=== PATIENT | female | born 1995 ===

== ENCOUNTER 2018-04-16 13:36 | Inpatient (IN) | payer MEDICAID, SELFPAY ==
[2018-04-16] MEDS ORDERED: Lactated Ringer's 1,000 ML IV ONE (14:47)
[2018-04-16 15:22] LABS: BASO % 0.4 % (0.0-2.0); EOS % 0.3 % (0.0-4.0); HEMOGLOBIN 10.8 g/dL (12.0-16.0); LYMPH # 1.5 K/uL (1.0-4.3); MEAN CELL VOLUME 80.2 fl (81.0-99.0); MEAN CORPUSCULAR HEMOGLOBIN 26.4 pg (27.0-31.0); MEAN CORPUSCULAR HGB CONC 32.9 g/dL (33.0-37.0); MEAN PLATELET VOLUME 9.6 fl (7.2-11.7); MONO # 0.5 K/uL (0.0-0.8); MONO % 5.9 % (0.0-10.0); NEUT # 6.2 K/uL (1.8-7.0); NEUT % 75.4 % (50.0-75.0); RBC 4.09 Mil/uL (3.80-5.20); WHITE BLOOD COUNT 8.2 K/uL (4.8-10.8)
[2018-04-16] MEDS: Lactated Ringer's 1,000 ML IV SCH ×2 (16:30→23:45)
[2018-04-16] MEDS ORDERED: Oxytocin 30 UNIT 30 UNITS/500 ML BAG IV ONE (23:42)
--- NOTE | 2018-04-16 23:56 | OBADHP ---
Datetime: 04/16/2018 23:54 FHR - Baseline A Provider: 130s-140s Contraction Comments Provider: occas Vital Signs Provider: Reviewed; Within Normal Limits NICHD Variability Prov Fetus A: Moderate 6-25bpm NICHD Accel Fetus A IP Provider: 15X15 FHR Category Provider Fetus A: Category I NICHD Decel Fetus A IP Provider: None Dilatation, Provider: 2-3 Effacement, Provider: 80 Station, Provider: -2 Datetime: 04/16/2018 15:03 Admit Comment, IP Provider: 22 y/o , 37.6 wks with SAIGE of 05/01/18 based on US presents to [facility] D with SROM. Reports leaking of clear liquid at 7 am today. Denies VB. CTx irregular for last 2 days. Endorses good FM. Denies urinary symptoms, N/V/D/C/F/C. Headache or CP. course: Lapse in care. Last US January 2018. PMHx; Denies PSHx: Denies Allergies: Seafood swelling of mouth F/H: Grandfather HTN Social H/O: Used to drink ETOH before Deneis alcohol/smoking/drugs since OBHx: 2 SABs at 6 and 8 weeks Physical exam Gen: NAD Chest: RRR, S1S2 present Lungs: CTAB ABdomen: Gravid, soft NT SSE: + pooling, + nitrazine, grossly ruptured. SVE: 2 cm/80%/-2 Ext: No pedal edema, No calf tenderness Assessment and Plan: 22 y/o , 37.6 wks with SAIGE of 05/01/18 admitted for SROM. EFM and toco monitoring SSE: grossly ruptured, + pooling and +nitrazine GBS unknown, HIV Neg, RPR neg, HBSAG neg, Rubella immune Admit to unit LR @ 999 and 125 anesthesia consult Monitor for cervical changes Rene Cui, PGY1 Pelvic Type - PN: Not Done Extremities - PN: Normal Abdomen - PN: Normal Back - PN: Not Done Breast - PN: Not Done Lungs - PN: Normal Heart - PN: Normal Thyroid - PN: Not Done Neurologic - PN: Normal HEENT - PN: Normal General - PN: Normal Amniotic Fluid Color, Provider: Clear Membranes, Provider: Ruptured Comments, ACOG Physical Exam: Gen: NAD Chest: RRR, S1S2 present Lungs: CTAB ABdomen: Gravid, soft NT SSE: + pooling, + nitrazine, grossly ruptured. SVE: 2 cm/80%/-2 Ext: No pedal edema, No calf tenderness Pool Provider: Positive Nitrazine Provider: Positive IP Hx Assessment: The History has been Reviewed and is Current IP Chief Complaint: Suspected ruptured membranes Genitourinary Exam: Normal DTRs - PN: Not Done EGA AdmitDate IP: 37.6 IP Adm Impression: Term, intrauterine IP Admit Plan: Admit to unit; Initiate labor protocol
--- NOTE | 2018-04-16 23:58 | OBPN ---
Datetime: 04/16/2018 23:54 IP Progress Impression: Rupture of membranes IP Procedures: Sterile Vag Exam IP Progress Plan: Augmentation Contraction Comments Provider: occas FHR - Baseline A Provider: 130s-140s IP Progress Note Comment: Pt without complaints. Plan to start pitocin augmentation due to SROM and no progress/labor FHT category I Discussed plan with patient and all patient questions answered. Vital Signs Provider: Reviewed; Within Normal Limits NICHD Accel Fetus A IP Provider: 15X15 FHR Category Provider Fetus A: Category I NICHD Variability Prov Fetus A: Moderate 6-25bpm Dilatation, Provider: 2-3 Effacement, Provider: 80 Station, Provider: -2 NICHD Decel Fetus A IP Provider: None Datetime: 04/16/2018 15:03 Pool Provider: Positive Nitrazine Provider: Positive Membranes, Provider: Ruptured Amniotic Fluid Color, Provider: Clear
[2018-04-17] MEDS: Lactated Ringer's 1,000 ML IV SCH ×2 (03:29→13:03)
[2018-04-17] MEDS ORDERED: ceFAZolin IV 2 gm in Dextrose 2 GM/50 ML BAG IVPB ONE (07:45)
[2018-04-17] MEDS ORDERED: Oxytocin 30 UNIT 30 UNITS/500 ML BAG IV ONE (07:47)
[2018-04-17] MEDS ORDERED: Succinylcholine Chloride 20 mg/ml Syr (5 ml) IV ONE (07:49)
[2018-04-17] MEDS ORDERED: OXYTOCIN/0.9 % NS 20 UNIT/1,000 ML BAG IV SCH (08:00)
[2018-04-17] MEDS ORDERED: Propofol 10 mg/ml Inj (20 ML) ONE (08:09)
[2018-04-17] MEDS ORDERED: Dexamethasone 4 mg/1 ml ONE (08:13)
[2018-04-17] MEDS ORDERED: ceFAZolin IV 2 gm in Dextrose 2 GM/50 ML BAG IVPB SCH (09:00)
[2018-04-17] MEDS ORDERED: Multivitamin With Minerals Tab PO SCH (09:00)
[2018-04-17] MEDS ORDERED: Naloxone 0.4 mg/ml Inj (Adult) IVP PRN ×2 (09:14→13:42)
[2018-04-17] MEDS ORDERED: DiphenhydrAMINE 50 mg/ml Inj IVP PRN ×2 (09:14→13:42)
--- NOTE | 2018-04-17 09:14 | OBADHP ---
Datetime: 04/16/2018 15:03 EGA AdmitDate IP: 37.6 Datetime: 04/16/2018 14:20 IP Admit Plan: Admit to unit; Initiate labor induction protocol; Observation/Evaluation
[2018-04-17] MEDS ORDERED: Oxycodone/Acetaminophen 5/325 mg Tab PO PRN (09:16)
--- NOTE | 2018-04-17 09:21 | OBPN ---
Datetime: 04/17/2018 09:13 IP Progress Note Comment: Pt with prolonged FHT deceleration. After repositioning, 02, scalp stim t here was temporarily recovery. ISE place. FHT showed bradycardia with moments of sluggish recovery. Decision for stat C/S due to prolonged FHT decelerations. I discussed the R/B/A of surgery with edinson yan and all patient questions answered. Pt agrees with plan. Anesthesia in route.
--- NOTE | 2018-04-17 09:36 | RAD ---
Date of service: 04/17/2018 HISTORY: no inital instrument count prior to surgery COMPARISON: Abdomen radiograph 04/17/2018. FINDINGS: BOWEL: Paucity of gas is seen at the rectum with gas distending likely large-bowel loops at the upper abdomen retained fecal material is again seen the right christine abdomen. Overall pattern may reflect developing ileus. Bowel obstruction not clearly identified. Continued clinical and radiographic monitor advised. Post pelvic surgeries surgical clips are noted overlying the pelvis. No large free intra peritoneal gas collection identified. BONES: Normal. OTHER FINDINGS: None. IMPRESSION: Likely developing postoperative ileus. Bowel obstruction not favored. Clinically correlate.
--- NOTE | 2018-04-17 10:36 | OBDS ---
DELIVERY PERSONNEL Delivery Doctor: Cora Alexander MD Anesthesiologist: olivia Beaver MD MATERNAL INFORMATION Medications in Delivery: pitocin 30 units Provider Comments: 1' LFT C/S Pt delivered viable with apgars 9/9. C/S completed with general anesthesia. Normal uterus , normal tubes and ovaries bilaterally. pt tolerated procedure well. EBL 800cc IVF 1500cc LR UO 20cc No complications. Refer to dictation. LABOR SUMMARY EDC: 05/01/2018 00:00 No. Babies in Womb: 1 Attempted: No LABOR INFORMATION Reason for Induction: Not Applicable Oxytocin: Augmentation Group B Beta Strep: Not Done (Annotations: aware.No ABT ordered) Steroids Given: None Reason Steroids Not Administered: Not Applicable MEMBRANES Membranes Rupture Method: Spontaneous Rupture of Membranes: 04/16/2018 07:00 Length of Rupture (hrs): 24.92 Amniotic Fluid Color: Clear Amniotic Fluid Amount: Scant Amniotic Fluid Odor: Normal STAGES OF LABOR Stage 3 hrs: 0 Stage 3 min: 1 CSECTION DELIVERY Primary Indication: Other Other Primary Indication: prolonged and persistent FHT decelerations BABY A INFORMATION Delivery Date/Time: 04/17/2018 07:55 Method of Delivery: Born in Route : Yes : N/A (Annotations: Data stored by [facility] on behalf of user) Forceps: N/A Vacuum Extraction: N/A Shoulder Dystocia : No SHOULDER DYSTOCIA BABY A Delivery Date/Time: 04/17/2018 07:55 PRESENTATION/POSITION BABY A Presentation: Cephalic Cephalic Presentation: Vertex PLACENTA INFORMATION BABY A Placenta Delivery Time : 04/17/2018 07:56 Placenta Method of Delivery: Manual Removal Placenta Status: Delivered SCORES BABY A Heart Rate 1 min: >100 bpm Resp Effort 1 min: Good Cry Reflex Irritability 1 min: Cough or Sneeze or Pulls Away Muscle Tone 1 min: Active Motion Color 1 min: Body [place], Extremities Blue SCORE 1 MIN: 9 Heart Rate 5 min: >100 bpm Resp Effort 5 min: Good Cry Reflex Irritability 5 min: Cough or Sneeze or Pulls Away Muscle Tone 5 min: Active Motion Color 5 min: Body [place], Extremities Blue SCORE 5 MIN: 9 Heart Rate 10 min: >100 bpm Resp Effort 10 min: Good Cry Reflex Irritability 10 min: Cough or Sneeze or Pulls Away Muscle Tone 10 min: Active Motion Color 10 min: Completely [place] SCORE 10 MIN: 10 INFORMATION BABY A Gestational Age at Delivery: 38.0 Outcome : Liveborn Condition : Stable Infant Sex: Female IDENTIFICATION/MEDS BABY A ID Band Number: [id number] ID Band Location: Left Leg; Left Arm Sensor Location : Left Leg WEIGHT/LENGTH BABY A Infant Birthweight (gms): 3380 Weight (lb): 7 Infant Weight (oz): 7 CORD INFORMATION BABY A No. Cord Vessels: 3 Nuchal Cord : N/A Suction: Mouth; Nose
[2018-04-17] MEDS ORDERED: Lactated Ringer's 1,000 ML IV SCH (13:42)
--- NOTE | 2018-04-17 20:55 | OP ---
PROCEDURE DATE: 04/17/2018 PREOPERATIVE DIAGNOSIS: Persistent heart tracing decelerations. POSTOPERATIVE DIAGNOSIS: Persistent heart tracing decelerations. OPERATION PERFORMED: Primary low-flap transverse section via Pfannenstiel incision. ANESTHESIA: General. ANESTHESIOLOGISTS: Joie Retana MD and Oracio Beaver MD COMPLICATIONS: None. ESTIMATED BLOOD LOSS: 800 mL. FLUIDS: 1500 mL of lactated Ringer's. URINE OUTPUT: 20 mL of clear urine. SURGEON: Kurt Alexander MD OPERATIVE FINDINGS: Viable infant with Apgars of 9 and 9 at 1 and 5 minutes respectively. Normal uterus, normal tubes, and normal ovaries bilaterally. DESCRIPTION OF PROCEDURE: The patient was taken to the operating room where general anesthesia was found to be adequate. The patient was prepped and draped in normal sterile fashion in dorsal supine position with leftward tilt. A Pfannenstiel skin incision was made with the scalpel. This was carried down through to the underlying layer of fascia with a scalpel. Midline defect was made in the fascial layer with the scalpel. The fascial incision was then extended bilaterally with curved Borges scissors. The fascial layer was from the underlying rectus muscles both bluntly and sharply with curved Borges scissors. The rectus muscles were at the midline. The peritoneum was then identified and entered bluntly. The peritoneal incision was extended bluntly. Sanjiv retractors placed into the abdomen. The uterus was incised with the scalpel. The uterine incision was extended bilaterally bluntly. The 's head was delivered atraumatically. Nose and mouth were suctioned with bulb suction. The remainder of the infant was delivered without complication. The cord was clamped and cut. The was handed off to awaiting pediatricians. Cord gases were collected. Cord blood was collected. The placenta was removed manually. The uterine incision was repaired with 0 Vicryl in a running, locked fashion. A second layer with the same suture was used to imbricate the first and to obtain excellent hemostasis. Re-inspection of the uterine incision proved excellent hemostasis. The abdomen and pelvis were irrigated with copious amounts of warm normal saline. Re-inspection of the uterine incision proved hemostasis. All instruments were removed from the patient. The peritoneal layer was closed with a running stitch of 2-0 chromic. The rectus muscles were reapproximated in the midline with a running stitch of 2-0 chromic. The fascial layer was closed with a running stitch of 0 Vicryl. Subcutaneous tissue was closed with a running stitch of 3-0 plain. The skin was closed with rc. The patient tolerated the procedure well. All sponge, lap, and needle counts were correct x2. There were no complications. The patient was given 2 g of Ancef just prior to the beginning of the procedure. The patient was taken to the recovery room in awake and stable condition. Kurt Alexander MD
[2018-04-18 06:12] LABS: HEMOGLOBIN 8.5 g/dL (12.0-16.0); MEAN CELL VOLUME 82.1 fl (81.0-99.0); MEAN CORPUSCULAR HEMOGLOBIN 26.4 pg (27.0-31.0); MEAN CORPUSCULAR HGB CONC 32.1 g/dL (33.0-37.0); RBC 3.23 Mil/uL (3.80-5.20); RED CELL DISTRIBUTION WIDTH 14.2 % (11.5-14.5)
--- NOTE | 2018-04-18 06:58 | OBPPN ---
Datetime: 04/18/2018 06:53 PP Pain Prov: Within normal limits PP Nausea Prov: Denies PP Flatus Prov: Yes PP BM Prov: No PP Abdomen/Uterus Prov: Normal PP Lochia Prov: Normal PP Extremities Prov: Normal PP C/S Incision Prov: Normal PP Progress Prov: Normal PP Comments Phys Exam Prov: Incision w/ bandage in place PP Impression Prov: Normal progression PP Progress Note Prov: POD 1 s/p primary c/s, doing well, breast feeding Continue current care Vital Signs Provider PP: Reviewed
[2018-04-18] MEDS: Multivitamin With Minerals Tab PO SCH (08:08)
[2018-04-18] MEDS: Oxycodone/Acetaminophen 5/325 mg Tab PO PRN ×2 (15:04→22:43)
[2018-04-19] MEDS: Multivitamin With Minerals Tab PO SCH (09:03)
[2018-04-19] MEDS: Oxycodone/Acetaminophen 5/325 mg Tab PO PRN (09:06)
--- NOTE | 2018-04-19 10:05 | OBPPN ---
Datetime: 04/19/2018 07:06 PP Pain Prov: Within normal limits PP Nausea Prov: Denies PP Flatus Prov: Yes PP BM Prov: No PP Breasts Prov: Not Done PP Heart Prov: Normal PP Lungs Prov: Normal PP Abdomen/Uterus Prov: Normal PP Lochia Prov: Normal PP Vulva/Perineum Prov: Normal PP CVA Tenderness Prov: Normal PP Extremities Prov: Normal PP C/S Incision Prov: Normal PP Progress Prov: Normal PP Impression Prov: Normal progression PP Plan Prov: Continue present management PP Progress Note Prov: POD 2 S: 22 yo now, s/p on 04/17/2018. Pt is seen and examined at bedside this AM. No overnight events. Pt reports mild abdominal pain, w hich is well controlled with pain meds. D/c dasilva. Dressing removed, incision site healing well. Kira ent on regular diet, tolerating well. Currently formula feeding. Lochia is similar to menses volume. Reports passing flatus but no BM yet. Denies fever/chills, diarrhea, nausea/vomiting, chest pain, dys pnea, and dizziness. O: Vitally stable GEN: Patient is comfortable. In no acute distress. Cardio: S1S2, no murmurs, gallops or rubs. Lungs: clear air entry sounds b/l, no wheezing Abdomen: BS+, tenderness to palpation. Dressing intact. Incision scar noted, well healing with no exudate seen, dry and intact. Uterus is firm and at the level of the umbilicus. EXT: No edema, calves non-tender to palpation, Isabel's Negative Assessment/Plan: 22 yo now, s/p at 38 wks on 04/17/2018. Pt remains afebrile, ramy erating pain with medication, doing well on POD#1. OOB with caution - SCDs for DVT prophylaxis, encouraged ambulating - Percocet 5/325mg, and Motrin 600mg prn for pain. - Senokot for constipation - Continue to encourage and ambulating - f/u CBC post op: 8.5/26.5 - Continue present management. - Anticipated D/C on 04/20/18 --- Rene Cui MD PGY-1 OB Hospitalist: On rounds, I saw this patient. Agree with note. [place]O Vital Signs Provider PP: Reviewed; Within Normal Limits
[2018-04-20] MEDS: Oxycodone/Acetaminophen 5/325 mg Tab PO PRN (08:20)
[2018-04-20] MEDS: Multivitamin With Minerals Tab PO SCH (08:20)
--- NOTE | 2018-04-20 11:39 | OBDCSUM ---
Datetime: 04/20/2018 06:10 Discharged to, Provider: Home Follow up at, Provider: Dr. Emery, [facility] Disch Instr Activity: Normal activity; May Shower Disch Instr Diet: Regular Discharge Instructions, Provider: Routine instructions given Discharge Diagnosis, Provider: Term Delivered Follow up in weeks, Provider: 04/26/18 Disch Referrals: None Contraception discussed, Prov: Yes Disch Activity Restrictions: No exercising; No lifting; No sexual activity; Nothing in vagina - Inte rcourse, tampons, douche Discharge Comment, Provider: Discharge summary 22 y/o s/p on 04/17/18. EGA: 38.0 weeks Diagnosis: Summary of : due to prolong and persistent recurrent decelerations DOD: 04/17/18 @ 7::55 Sex: Female Weight: 3380 gm : 9/9 Feeding: breast Post- D/C Summary: No complications during delivery. No complications during post- per iod. Lochia like menses in volume. Pt able to pass gas, had BM, ambulating and pass urine. Tolerate r egular diet, no SEXTON, CP, SOB, N/V, fever or other acute complaint at this time. Fundus firm below umbi licus level. Pt is hemodynamically stable. H/H : 8.5/26.5 (admission 10.8/32.8) DISCHARGE DATA D/C DATE: 04/20/18 DISCHARGE INSTRUCTIONS: -Encouraged -PNV 1 tab po q/day -Take Ibuprofen 600 mg Q6hr PRN for mild pain -Take Percocet 5/325 mg Q4hr PRN for mod-severe pain -Ferrous Sulfate 325 mg Tab BID # 60 tab -Senokot Tab PO HS #20 tab for constipation - ED precautions: If excessive bleeding, pain that does not get relief, fever >100.4, palpitations , SOB, CP or other concerning symptom go to the ED. - PT was urged if feeling sad, mood swing, depression, neglect of baby, suicidal thoughts, homicid al thoughts go to ER or call 911 for help - Pt should go to her Primary care doctor if have difficulty with breast feeding - F/U at [facility] with Dr. Emery on 04/26/18 for wound checkup. Rene Cui MD, PGY1 Contraception after Delivery: IUD
--- NOTE | 2018-04-20 11:39 | OBPPN ---
Datetime: 04/20/2018 06:11 PP Pain Prov: Within normal limits PP Nausea Prov: Denies PP Flatus Prov: Yes PP BM Prov: Yes PP Breasts Prov: Not Done PP Heart Prov: Normal PP Lungs Prov: Normal PP Abdomen/Uterus Prov: Normal PP Lochia Prov: Not Done PP Vulva/Perineum Prov: Not Done PP CVA Tenderness Prov: Normal PP Extremities Prov: Normal PP C/S Incision Prov: Normal PP Progress Prov: Normal PP Impression Prov: Normal progression PP Plan Prov: Continue present management PP Progress Note Prov: POD 3 S: 22 yo now, s/p on 04/17/2018. Pt is seen and examined at bedside this AM. No overnight events. Pt reports mild abdominal pain, w hich is well controlled with pain meds. D/c dasilva. Dressing removed, incision site healing well. Kira ent on regular diet, tolerating well. Currently formula feeding. Lochia is similar to menses volume. Reports passing flatus and had BM. Denies fever/chills, diarrhea, nausea/vomiting, chest pain, dyspne a, and dizziness. O: Vitally stable GEN: Patient is comfortable. In no acute distress. Cardio: S1S2, no murmurs, gallops or rubs. Lungs: clear air entry sounds b/l, no wheezing Abdomen: BS+, tenderness to palpation. Dressing intact. Incision scar noted, well healing with no exudate seen, dry and intact. Uterus is firm and at the level of the umbilicus. EXT: No edema, calves non-tender to palpation, Isabel's Negative Assessment/Plan: 22 yo now, s/p at 38 wks on 04/17/2018. Pt remains afebrile, ramy erating pain with medication, doing well on POD#3. OOB with caution - SCDs for DVT prophylaxis, encouraged ambulating - Percocet 5/325mg, and Motrin 600mg prn for pain. - Senokot for constipation - Continue to encourage and ambulating - f/u CBC post op: 8.5/26.5 - Continue present management. - Anticipated D/C today, on 04/20/18 --- Rene Cui MD PGY-1 Vital Signs Provider PP: Reviewed; Within Normal Limits
[2018-04-20 19:10] VITALS: BP 126/77; PULSE 79; RESP 20; TEMP 97.3; O2SAT 97
== END 2018-04-20 14:10 | disposition home or self-care (01) | DRG 540 ==
LOC: H.EROB2 13:36 → H.L&D 14:47 → H.OB/GYN 04-17 15:23
PROVIDERS: ADMIT Obstetrics & Gynecology; ATTEND Obstetrics & Gynecology
PROC: 4A1HXCZ Monitoring of Products of Conception, Cardiac Rate, External Approach (ICD-10-PCS; 2018-04-16)
PROC: 10D00Z1 Extraction of Products of Conception, Low, Open Approach (ICD-10-PCS; principal; 2018-04-17)
DX: O76 Abnormality in fetal heart rate and rhythm complicating labor and delivery (principal); K59.00 Constipation, unspecified; Z37.0 Single live birth; Z3A.38 38 weeks gestation of pregnancy